=== PATIENT | female | born 1980 | race Caucasian/White ===

== ENCOUNTER 2025-04-29 07:39 | Emergency (ER) | payer MEDICAID, SELFPAY ==
[2025-04-29 07:47] VITALS: BP 144/73; PULSE 46; RESP 17; TEMP 36.9; O2SAT 98; BMI 46.9
--- NOTE | 2025-04-29 07:57 | PD.EDABDPN ---
ED Abdominal Pain RME/HPI General Chief Complaint: Abdominal Pain Stated complaint: Right lower abdominal pain this morning Time seen by provider: 04/29/25 08:03 Arrival date/time: 04/29/25 07:39 Source: patient Mode of arrival: ambulatory Limitations: no limitations RME / HPI RME / HPI narrative: Upon awakening this morning patient developed a sudden pain to the area of the right groin. After which she had cold sweats. Denies any other complaints. Denies trauma, heavy lifting and exercise MD complaint: abdominal pain (Right lower quadrant proximal to the pelvis) and other (Right lower quadrant proximal to the pelvis) Onset (ago): hour(s) (Upon arising from bed this morning) Consistency: constant Location: RLQ (Proximal to the flank) Severity: moderate Severity scale (1-10): 4 Quality: stabbing and sharp Radiation: none Migration to: no migration Related Data LMP (females 10-50): last week Allergies Allergy/AdvReac Type Severity Reaction Status Date / Time No Known Drug Allergies Allergy Verified 04/29/25 07:42 Review of Systems Constitutional Constitutional: Reports system reviewed and no additional complaints, except as documented Eyes Eyes: Reports system reviewed and no additional complaints, except as documented, Denies dry eyes, Denies exophthalmos and Reports floaters Cardiovascular Cardiovascular: Denies chest pain with activity and Denies claudication ED Exam Narrative Physical exam: There is tenderness to palpation at the right lower quadrant approximately to the right groin. Negative for rebound tenderness however there is tenderness to palpation proximal to the area of the appendix. There is guarding upon palpation. There is no apparent masses. General Limitations: Present no limitations General appearance: Present alert and in no apparent distress Head Head exam: Present atraumatic Eye Eye exam: Present normal appearance and EOMI ENT ENT exam: Present normal exam, normal oropharynx and mucous membranes moist Neck Neck exam: Present normal inspection, full ROM and trachea midline Chest Chest inspection: Present normal inspection and symmetric chest wall rise Respiratory Respiratory exam: Present normal lung sounds bilaterally Cardiovascular Cardiovascular exam: Present regular rate, normal rhythm and normal heart sounds Abdominal Exam Abdominal exam: Present soft and normal bowel sounds Extremities Exam Extremities exam: Present normal inspection and full ROM Back Exam Back exam: Present normal inspection and full ROM Neurological Exam Neurological exam: Present alert and oriented X3 Psychiatric Psychiatric exam: Present normal affect and normal mood Skin Skin exam: Present warm, dry, intact and normal color Course Course Course Narrative: Patient will have an abdominal pain workup in she is to CT for CT of the abdomen pelvis. Orders Category Date Time Status CT Screening NOW Care 04/29/25 08:01 Active Insert IV NOW Care 04/29/25 12:[address] abdomen pelvis w con Stat Exams 04/29/25 08:01 Completed US pelvic complete Stat Exams 04/29/25 14:46 Completed CBC Stat Lab 04/29/25 09:43 Completed Comprehensive Metabolic Panel Stat Lab 04/29/25 09:43 Completed HCG Qualitative,Urine Stat Lab 04/29/25 11:21 Completed Lipase Stat Lab 04/29/25 09:43 Completed Procalcitonin Stat Lab 04/29/25 09:43 Completed Urinalysis Stat Lab 04/29/25 11:21 Completed Ketorolac Inj [Toradol Inj] Med 04/29/25 08:22 Discontinued 30 mg IM X1 ONE CBC, CMP, UA, hCG, procalcitonin, CT of the abdomen and pelvis with contrast Reevaluation(s) Additional Reevaluation(s): NA Vital Signs Vital signs: Vital Signs Temperature 98.5 F 04/29/25 07:47 Pulse Rate 46 L 04/29/25 07:47 Respiratory Rate 17 04/29/25 07:47 Blood Pressure 144/73 H 04/29/25 07:47 Pulse Oximetry (%) 98 04/29/25 07:47 Oxygen Delivery Method Room Air 04/29/25 07:47 Pulse ox is room air 98% Abdominal Pain MDM Medications / Prescriptions Medication administrations:: Medication Administration History Discontinued Medications Ketorolac Tromethamine (Ketorolac Inj 60 Mg/2 Ml Vial) 30 mg IM X1 ONE Stop: 04/29/25 08:23 Last Admin: 04/29/25 08:30 Dose: 30 mg Documented By: ED Discharge Plan Prescriptions/Referrals Referrals: No Primary/Family,Physician [Primary Care Provider] - In 1 week Patient/Caregiver Discharge Instructions Print Language: Micronesian
--- NOTE | 2025-04-29 08:01 | XR_ITS ---
Examination: CT abdomen with intravenous contrast CT pelvis with intravenous contrast 2-D coronal reconstructions 2-D sagittal reconstructions Date and time of exam:April 29, 2025 1245 hours INDICATIONS: Right-sided abdominal pain thinning today. CTDI: vol (mGy) 19.6 DLP: (mGycm) 1210 Technique: Multiple axial sections of the abdomen and pelvis have been obtained. 64 slice high-resolution scanner used. 3 mm axial sections have been obtained, post intravenous injection 60 cc [id number] 2-D sagittal, coronal reconstructions obtained. Low dose protocols were performed. One or more of the following dose reduction techniques were used; automated exposure control, adjustment of the mA and/or KV according to patient size, use of iterative reconstruction technique. Findings: No focal liver or splenic lesions no gallstones Normal pancreas adrenal glands. 36 mm right renal cyst Aorta normal size Normal appendix No bowel obstruction Right anterior pelvic cyst with mural thickening posteriorly, this cyst measuring 9.7 cm No uterine mass Urinary bladder intact IMPRESSION: Normal appendix Complex right ovarian cystic mass, recommend pelvic sonography follow-up
[2025-04-29] MEDS: KETOROLAC INJ 60 MG/2 ML VIAL 30 MG IM (08:30)
[2025-04-29 10:05] LABS: Basophils # (Auto) 0.1 Thou/mm3 (0.0-0.2); Basophils % (Auto) 1 % (0-2.5); Eosinophils # (Auto) 0.1 Thou/mm3 (0.0-0.5); Eosinophils % (Auto) 1 % (0-10); Hematocrit 39.2 % (36.0-46.0); Hemoglobin 12.4 g/dL (12.0-16.0); Immature Granulocytes Auto 0.05 Thou/mm3 (0.00-0.00); Lymphocytes # (Auto) 1.3 Thou/mm3 (1.0-4.8); Lymphocytes % (Auto) 10 % (10-50); Mean Corpuscular HGB Conc 31.6 g/dl (31.0-37.0); Mean Corpuscular Hemoglobin 24.7 pg (25.0-35.0); Mean Corpuscular Volume 78 fL (80-100); Monocytes # (Auto) 0.7 Thou/mm3 (0.0-0.8); Monocytes % (Auto) 5 % (0-12); Neutrophils # (Auto) 11.0 Thou/mm3 (1.8-7.7); Neutrophils % (Auto) 83 % (37-80); Nucleated Red Blood Cell # 0.00 Thou/mm3 (0.00-0.00); Nucleated Red Blood Cell % 0 /100 WBC (0); Platelet Count 475 Thou/mm3 (140-440); RDW Standard Deviation 48.0 fL (36.4-46.3); Red Blood Count 5.02 Miln/mm3 (4.00-5.20); White Blood Count 13.3 Thou/mm3 (3.6-11.0)
[2025-04-29 10:30] LABS: Alanine Aminotransferase 24 U/L (10-49); Albumin, Serum 4.3 gm/dL (3.5-5.0); Albumin/Globulin Ratio 1.4 (1.2-2.2); Alkaline Phosphatase 78 U/L (46-116); Anion Gap 9 (7-16); Aspartate Amino Transferase 18 U/L (0-34); BUN/Creatinine Ratio 11 Ratio (12-20); Bilirubin,Total 0.3 mg/dL (0.3-1.2); Blood Urea Nitrogen 9 mg/dL (9-23); Calcium 9.2 mg/dL (8.3-10.6); Calcium (Corrected) 9.2 mg/dL (8.5-10.1); Carbon Dioxide 26.9 mMol/L (20.0-31.0); Chloride 107 mMol/L (98-107); Creatinine (Component) 0.8 mg/dL (0.6-1.3); Estimated Creatinine Clearance 110.3 mL/min (>60); Globulin 3.1 gm/dL (2.3-3.5); Glucose 123 mg/dL (74-106); Lipase 27 U/L (12-53); Osmolality,Calculated 284 (275-295); Potassium 3.9 mMol/L (3.4-5.1); Procalcitonin < 0.04 ng/ml (0.0-0.49); Sodium 143 mMol/L (136-145); Total Protein 7.4 gm/dL (5.7-8.2); eGFR > 60 See Note
[2025-04-29 11:11] VITALS: BP 152/97; PULSE 69; RESP 18; TEMP 36.6; O2SAT 96
[2025-04-29 11:27] LABS: Collection Type, Urine Clean Catch
[2025-04-29 11:38] LABS: Amorphous Crystals,Urine Present (Absent); Bacteria,Urine Rare; Bilirubin,Urine Negative (Negative); Blood,Urine Negative (Negative); Clarity,Urine Cloudy (Clear/Hazy); Color,Urine Yellow (Lt Yel-Yel); Glucose, Urine Negative (Negative); Ketones,Urine Negative (Negative); Leukocyte Esterase,Urine Negative (Negative); Nitrite,Urine Negative (Negative); PH,Urine 6.0 (5.0-7.0); Protein,Urine 1+ (Neg - Trace); RBC,Urine 5 /hpf (0-3); Specific Gravity,Urine 1.031 (1.001-1.035); Squamous Epithelial Cell,Urine 2 /hpf (0-5); Urobilinogen,Urine Negative mg/dL (0.0-1.0); WBC,Urine 16 /hpf (0-5)
[2025-04-29 11:39] LABS: HCG Qualitative,Urine Negative
[2025-04-29 13:59] VITALS: BP 142/86; PULSE 73; RESP 18; TEMP 36.7; O2SAT 97
--- NOTE | 2025-04-29 14:46 | XR_ITS ---
Examination: Pelvic ultrasound, transabdominal, complete Technique: Transabdominal ultrasound of the pelvis performed using grayscale imaging Date and time of exam: April 29, 2025 1517 hours INDICATIONS: Abdominal pelvic pain today, complex right ovarian cystic mass on CT pelvis study today FINDINGS: Uterus 11.9 cm uterine body calcification 19 mm Endometrial stripe 0.5 cm Right ovary 11.7 cm arterial flow, right ovarian simple cyst 10.1 x 9.4 x 9.9 cm Left ovary 2.7 cm arterial flow IMPRESSION: Right ovarian simple cyst at 10.1 x 9.4 x 9.9 cm, consider 6 month follow-up
--- NOTE | 2025-04-29 17:05 | PD.EDABDPN ---
ED Abdominal Pain RME/HPI General Chief Complaint: Abdominal Pain Stated complaint: Right lower abdominal pain this morning Time seen by provider: 04/29/25 08:03 Arrival date/time: 04/29/25 07:39 Source: patient Mode of arrival: ambulatory Limitations: no limitations RME / HPI RME / HPI narrative: 44-year-old female patient came in for evaluation regarding right pelvic pain. Onset of symptoms since early this morning, patient woke up with pain, described as sharp pain, severity moderate. Denies any vomiting denies any fever denies any vaginal bleeding denies any spotting, denies any dysuria denies any other complaints. No medications taken prior to ER visit. MD complaint: abdominal pain (Right lower quadrant proximal to the pelvis) and other (Right lower quadrant proximal to the pelvis) Location: RLQ (Proximal to the flank) Severity: moderate Severity scale (1-10): 4 Quality: stabbing and sharp Migration to: no migration Related Data Allergies Allergy/AdvReac Type Severity Reaction Status Date / Time No Known Drug Allergies Allergy Verified 04/29/25 07:42 Review of Systems Review of Systems Narrative Review of Systems: Review of system reviewed and within normal limits except mentioned in HPI ED Exam Narrative Physical exam: VITAL SIGNS: Reviewed. GENERAL APPEARANCE: Alert and interactive, follows commands, no acute distress, HEAD AND FACE: Non-traumatic. ENT: PERRL, pink conjunctivitis, eyelid no trauma, Mucous membrane moist. NECK: Supple, nontender, no nuchal rigidity. CHEST: No tenderness, no crepitus, no paradoxical movement, no retractions. LUNGS: Clear, well ventilated, symmetric, no rales, no wheezing, no ronchi, no stridor, good breath sounds bilaterally. HEART: Regular rate, regular rhythm, no murmur, no gallops. ABDOMEN: Soft, positive bowel sounds, nondistended, no guarding, right pelvic tenderness, no rebound, no masses, RECTAL: Deferred. GENITAL: Deferred. NEUROLOGICAL: Gross motor function intact sensory function intact, Appropriate for age. MUSCULOSKELETAL: low back nontender, full range of motion. EXTREMITIES: Nontender, full range of motion. SKIN: Color pink, dry, no rash, no lacerations, no abrasions, no contusions. LYMPHATICS: Deferred. General Limitations: Present no limitations General appearance: Present alert and in no apparent distress Course Course Course Narrative: Patient will have an abdominal pain workup in she is to CT for CT of the abdomen pelvis. Quality Measures none Orders Category Date Time Status CT Screening NOW Care 04/29/25 08:01 Active Insert IV NOW Care 04/29/25 12:[address] abdomen pelvis w con Stat Exams 04/29/25 08:01 Completed US pelvic complete Stat Exams 04/29/25 14:46 Completed CBC Stat Lab 04/29/25 09:43 Completed Comprehensive Metabolic Panel Stat Lab 04/29/25 09:43 Completed HCG Qualitative,Urine Stat Lab 04/29/25 11:21 Completed Lipase Stat Lab 04/29/25 09:43 Completed Procalcitonin Stat Lab 04/29/25 09:43 Completed Urinalysis Stat Lab 04/29/25 11:21 Completed Ketorolac Inj [Toradol Inj] Med 04/29/25 08:22 Discontinued 30 mg IM X1 ONE Vital Signs Vital signs: Vital Signs Temperature 98.5 F 04/29/25 07:47 Pulse Rate 46 L 04/29/25 07:47 Respiratory Rate 17 04/29/25 07:47 Blood Pressure 144/73 H 04/29/25 07:47 Pulse Oximetry (%) 98 04/29/25 07:47 Oxygen Delivery Method Room Air 04/29/25 07:47 Abdominal Pain MDM MDM Narrative MDM Narrative:: 44-year-old female patient came in for evaluation regarding right pelvic pain. Onset of symptoms since early this morning, patient woke up with pain, described as sharp pain, severity moderate. Denies any vomiting denies any fever denies any vaginal bleeding denies any spotting, denies any dysuria denies any other complaints. No medications taken prior travel. Patient's workup today CBC showed slight leukocytosis of 13.3, she is not CMP unremarkable Pro-Tavares is normal urinalysis no UTI. Ultrasound of the pelvis showed simple cyst on the right ovary, no torsion noted arterial blood flow is good. I spoke with Dr Mayes [employer] on-call, told me that patient can go home and can follow-up in her clinic next week. Currently patient is not having any symptoms. Patient data External records reviewed:: None Clinical information provided by:: patient Social determinants that could affect healthcare access:: none Patient has the following chronic illnesses:: None How is presenting disease/condition affected by chronic disease/condition?: no chronic disease Evaluation data The following diagnostics were reviewed and interpreted by me:: lab results and radiology exam(s) Lab and/or radiology exams considered but not ordered:: None Interpretation Summary: See results MDM Medications / Prescriptions Medications or Prescriptions considered but not ordered:: None Medication administrations:: Medication Administration History Discontinued Medications Ketorolac Tromethamine (Ketorolac Inj 60 Mg/2 Ml Vial) 30 mg IM X1 ONE Stop: 04/29/25 08:23 Last Admin: 04/29/25 08:30 Dose: 30 mg Documented By: ED Toradol IM Consultations Consultation(s) initiated? (list below): No Diagnosis Differential diagnosis abdominal pain: abdominal pain, acute appendicitis, small bowel obstruction and other (Ovarian cyst) Most likely diagnosis given after review of the tests above:: Ovarian cyst Admission Indicated Admission indicated?: not indicated Admission Request Was there a request for admission?: No Disposition Plan Disposition Plan: Discharge Discharge Attestation Discharge Attestation: The patient and all family members were given an opportunity to ask questions and understood the discharge instructions. Discharge instructions specifically effects, indications for sooner follow up or return to the emergency department, and the expected course of current diagnosis. Patient condition: Stable Discharge Plan Plan Patient Disposition: HOME (Self Care) Discharge Disposition comment: Stable Prescriptions/Referrals Referrals: [facility] ([facility])Becky MD [Physician] - In 1 week (Please call ahead for appointment) No Primary/Family,Physician [Primary Care Provider] - In 1 week Problem List Clinical Impression: Cyst of right ovary Patient/Caregiver Discharge Instructions Discharge Activity: activity as tolerated Education Materials: ED Ovarian Cyst Additional Instructions: Thank you for the opportunity for serving you today. You are stable for discharged . You are advised to: Follow-up with Dr. Mayes [employer] next week, please call ahead for appointment Return to ED for worsening of symptoms Increase oral fluids You may take Tylenol or Motrin as needed for pain Print Language: Yi Stand Alone Forms: Moon Award Info., Patient Portal Info Letter PA/BONNY Supervising Physician MIKE/BONNY Supervising Physician: MD Stuart
[2025-04-29 17:31] VITALS: BP 162/86; PULSE 78; RESP 18; TEMP 37.1; O2SAT 97
== END 2025-04-29 17:32 | disposition home or self-care (01) ==
PROVIDERS: Physician Assistant; Emergency Provider Emergency Medicine
DX: N83.291 Other ovarian cyst, right side (principal); R10.31 Right lower quadrant pain
CPT/HCPCS: 36415; 74177; 76856; 80053; 81001; 81025; 83690; 84145; 85025; 96372; 99283; A4649; J1885; Q9967